=== PATIENT | female | born 1990 | race Caucasian/White ===

== ENCOUNTER 2018-11-16 19:49 | Emergency (ER) | payer OTHER ==
[2018-11-16 20:04] VITALS: BP 102/72; PULSE 74; TEMP 98.6; BMI 23.6
--- NOTE | 2018-11-16 20:05 | PDOC ---
Rapid Medical Evaluation Time Seen by Provider: 11/16/18 20:00 Medical Evaluation: 11/16/18 20:01 I have performed a brief in-person evaluation of this patient. The patient presents with a chief complaint of: constipation x 1 week. Patient seen at [facility] for the same 2 days ago, states took laxative with no relief of symptoms, has small amount of stools. Admits to oxycontin use. Pertinent physical exam findings: NAD unlabored breathing Abdomen: + bowel sounds, mild tenderness with palpation of abdomen I have ordered the following: xray of abdomen, urine The patient will proceed to the ED for further evaluation.
== END 2018-11-16 20:55 | disposition left against medical advice (07) ==
LOC: JER 19:49
DX: K59.00 Constipation, unspecified (principal)
CPT/HCPCS: 99281-25

== ENCOUNTER 2022-01-07 19:08 | Inpatient (IN) | payer OTHER ==
[2022-01-07 19:51] VITALS: BMI 23.7
[2022-01-08] MEDS ORDERED: MAGNESIUM HYDROX 2400MG/30ML ORAL SUSPENSION 30 ML CUP PO PRN (06:14)
[2022-01-08] MEDS ORDERED: IBUPROFEN 400 MG TABLET (FP) PO PRN (06:14)
[2022-01-08] MEDS ORDERED: ACETAMINOPHEN 325 MG TABLET (FP) PO PRN ×2 (06:14)
[2022-01-08] MEDS ORDERED: DICYCLOMINE HCL 10 MG CAPSULE PO PRN (06:14)
[2022-01-08] MEDS ORDERED: METHOCARBAMOL 500 MG TABLET PO PRN (06:14)
[2022-01-08] MEDS ORDERED: MAG HYDROX/AL HYDROX/SIMETH 30 ML UNIT-DOSE CUP PO PRN (06:14)
[2022-01-08] MEDS ORDERED: MAGNESIUM CITRATE 300 ML BOTTLE PO PRN (06:14)
[2022-01-08] MEDS ORDERED: LOPERAMIDE HCL 2 MG CAPSULE PO PRN (06:14)
[2022-01-08] MEDS ORDERED: ONDANSETRON *ODT* 4 MG TABLET SL PRN (06:14)
[2022-01-08] MEDS ORDERED: BISMUTH SUBSALICYLATE 524 MG/30 ML PO PRN (06:14)
[2022-01-08] MEDS ORDERED: NICOTINE 10 MG CARTRIDGE (INHALER) IH PRN (06:14)
[2022-01-08] MEDS ORDERED: BENZOCAINE/MENTHOL (CHLORASEPTIC ) LOZENGE MM PRN (06:14)
[2022-01-08] MEDS ORDERED: methaDONE HCL 10 MG TABLET (FOR DETOX USE ONLY) PO ONE (09:46)
[2022-01-08] MEDS ORDERED: cloNIDine HCL 0.1 MG TABLET PO PRN (09:46)
[2022-01-08] MEDS ORDERED: diazePAM 5 MG TABLET PO PRN (09:47)
[2022-01-08] MEDS ORDERED: NICOTINE 14 MG/24 HOURS TOPICAL PATCH TD SCH (10:00)
[2022-01-08] MEDS ORDERED: PRENATAL VITAMINS W/ FOLIC ACID TABLET (FP) PO SCH (10:00)
[2022-01-08 13:40] VITALS: BP 137/75; PULSE 90; TEMP 98
[2022-01-08 17:13] LABS: HEMATOCRIT 39.9 % (32.4-45.2); HEMOGLOBIN 13.4 GM/dL (10.7-15.3); MCH 28.3 pg (25.7-33.7); MCHC 33.7 g/dl (32.0-36.0); MEAN CELL VOLUME 83.9 fl (80-96); MEAN PLT VOLUME 9.6 fl (7.5-11.1); PLATELET COUNT 190 10^3/uL (134-434); RBC 4.75 M/mm3 (3.60-5.2); WHITE BLOOD COUNT 6.5 K/mm3 (4.0-10.0)
[2022-01-08 17:16] LABS: ALBUMIN 4.5 g/dl (3.4-5.0); CALCIUM 9.7 mg/dL (8.5-10.1)
[2022-01-08 17:19] LABS: CREATININE 0.8 mg/dL (0.55-1.3)
[2022-01-08 17:21] LABS: BILIRUBIN,TOTAL 0.6 mg/dL (0.2-1)
[2022-01-08] MEDS ORDERED: MELATONIN 5 MG TABLETS PO SCH (22:00)
[2022-01-08] MEDS ORDERED: THIAMINE HCL 100 MG TABLET (FP) PO SCH (22:00)
[2022-01-10] MEDS ORDERED: methaDONE HCL 10 MG TABLET (FOR DETOX USE ONLY) PO ONE (10:00)
[2022-01-12] MEDS ORDERED: methaDONE HCL 10 MG TABLET (FOR DETOX USE ONLY) PO ONE (10:00)
== END 2022-01-08 16:40 | disposition left against medical advice (07) | DRG 770 ==
LOC: YASAS 19:08 → Y3N 01-08 06:13 → Y6N 01-08 09:56 → Y3N 01-08 10:02 → Y6N 01-08 10:11
PROVIDERS: ADMIT Allergy & Immunology; ATTEND Allergy & Immunology
PROC: HZ2ZZZZ Detoxification Services for Substance Abuse Treatment (ICD-10-PCS; principal; 2022-01-08)
DX: F11.23 Opioid dependence with withdrawal (principal); F17.210 Nicotine dependence, cigarettes, uncomplicated; F41.9 Anxiety disorder, unspecified
CPT/HCPCS: 36415; 80053; 81025; 85027; 86780; 93005; 93010; C9803-CS; U0003; U0005